=== PATIENT | female | born 1985 | race African-American/Black ===

== ENCOUNTER 2017-09-13 22:51 | Emergency (ER) | payer OTHER, BC ==
[~2017-09-13] VITALS: Ht 160 cm; Wt 56.3 kg
[~2017-09-13 22:51] MED LIST: ENDOCET 5-3251 EACH PO; IBUPROFEN800 MG PO; IRON325 MG PO; ISENTRESS400 MG PO; PRENATAL TABLE1 EAC3 PO; TRUVADA1 TABLET PO
[2017-09-13 23:16] LABS: HEMOGLOBIN 12.7 G/DL (11.9-15.5); MCH 26.7 PG (29.0-34.0); MCHC 33.4 G/DL (30.0-36.0); MCV 79.8 FL (83-99); PLATELET COUNT 186 K/uL (156-360); RBC DIS.WIDTH-CV 12.8 % (11.8-14.6); RED BLOOD COUNT 4.76 M/uL (3.80-5.20); WHITE BLOOD COUNT 4.1 K/uL (4.1-10.2)
[2017-09-13 23:30] LABS: CHLORIDE 103 mEq/L (99-109); POTASSIUM 4.5 mEq/L (3.7-5.4); SODIUM 137 mEq/L (136-147)
[2017-09-13 23:32] LABS: GLUCOSE 98 mg/dL (70-99)
[2017-09-13 23:36] LABS: CREATININE 0.9 mg/dL (0.6-1.3); GFR ESTIMATE (CALCULATED) > 59 mL/min/
[2017-09-13 23:37] LABS: UREA NITROGEN (BUN) 14 mg/dL (9-23)
[2017-09-13 23:45] LABS: TROP-I INTERPRETATION NEGATIVE; TROPONIN-I < 0.01 ng/mL (0.0-0.30)
[2017-09-14] MEDS ORDERED: VALIUM5 MG PO (00:03)
[2017-09-14] MEDS ORDERED: NAPROXEN500 MG PO (00:03)
[2017-09-14 00:16] VITALS: BP 146/103
== END 2017-09-14 00:18 | disposition home or self-care (01) ==
LOC: EME 22:51
DX: M62.830 Muscle spasm of back (principal); X50.9XXA Other and unspecified overexertion or strenuous movements or postures, initial encounter; Y93.F2 Activity, caregiving, lifting; Y99.0 Civilian activity done for income or pay
CPT/HCPCS: 71046; 80048; 84484; 85027; 93005; 99281; 99284